=== PATIENT | male | born 2005 | race Caucasian/White ===

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

== ENCOUNTER 2024-07-24 09:37 | Outpatient (AMB) | payer MEDICAID, SELFPAY ==
--- NOTE | 2024-07-24 09:38 | A.OFFVISP_ITS ---
Vital Signs 07/24/24 09:46 Head Cirumference 173.5 Height 5 ft 8.31 in Height percentile 50 Weight 137 lb 4 oz Weight percentile 25 BMI 20.7 BMI percentile 25 Temp 98.2 F Temp Source Oral Pulse 73 Pulse Source Pulse Oximeter BP 116/78 Pulse Oximetry (%) 98 Pediatric Intake Visit Reasons: [facility] 19 year male Director And Professor Required: No Accompanied by: Mother Allergies acetaminophen [Tylenol] Allergy (Severe, Verified 07/24/24 09:47) Anaphylaxis Benadryl Allergy (Severe, Uncoded 07/24/24 09:47) Anaphylaxis shellfish Allergy (Unknown, Uncoded 07/24/24 09:47) anaphylaxis Medication List - Last Reconciled 07/24/24 by Prema Huff MD albuterol sulfate 90 mcg/actuation (Ventolin HFA) 2 puffs inhalation Q4-6H PRN aripiprazole 2.5 mg PO BEDTIME azelastine 1 spray intranasal BID budesonide-formoterol 160-4.5 mcg/actuation (Symbicort) 2 puffs inhalation BID cetirizine 10 mg PO DAILY PRN clonazepam 1 mg PO ONCE PRN diazepam (Valtoco) mg intranasal divalproex 500 mg PO BID epinephrine 0.3 mg (0.3 mL) IM ONCE PRN fexofenadine 180 mg PO DAILY guanfacine ER 4 mg PO DAILY ketotifen fumarate 0.025%(0.035%) (Alaway) 1 drp ophthalmic (eye) BID PRN sertraline 12.5 mg PO BEDTIME tiotropium bromide 2.5 mcg/actuation (Spiriva Respimat) 1 puff PO DAILY triamcinolone acetonide 2 sprays intranasal DAILY zonisamide 200 mg PO DAILY Dental Screening Dental Screen Date: 07/24/24 Did your child have a dental visit in the last 12 months for preventative care, such as check-ups/dental cleaning?: Yes Was there a time your child needed dental care in the last 12 months, but was not received?: No Was dental information given to patient?: Patient has dentist [facility] 18-21 Year Male Concerns: 1) asthma management. Asthma exacerbations include frequent early- morning shortness of breath and physical activity limitations. The use of a rescue inhaler is infrequent despite symptoms. he is using bid symbicort as prescribed. He struggles to walk up and down stairs. previous PFTs with c/o restrictive process vs poor cooperation. has now aged out so hasnt had further eval. 2) autism/ ID/ sensory difficulties -daily activities like showering and hygiene continue to be challenging. Adaptive clothing has helped a lot with dressing. he has had ongoing scalp issues d/t not washing his hair regularly and always wearing a hat 3) now legally blind. vision is significant issue for him. has a lot of fatigue which mom feels is related to vision. has been evaluated at [facility]. ) increasing irritability. sees psych - needs med adjustment - his dr was deployed so now has diff provider and doesnt want to see anyone else. irritability really impacts home dynamics Nutrition well-balanced, healthy diet with good variety/appropriate servings of fruits/vegetables/proteins/dairy. drinks a lot of milk. prefers junk but will eat fruit and vegetables. Exercise Sports and activities: Reports watches >2 hours of screen time daily Genitourinary Bowel movements: normal Urine output: normal Dental Dental care: Reports receives dental care Educational/Employment attends transitions 2 program at [facility] at age 21 - will transition to care home environment at that point. lives in 2 bedroom transition apartment in downstairs of house with sister Yoselyn. there is kitchen with keurig, frig, microwave and convection oven/toaster and living space. Sleep Sleep location: 4-7 years: own bed Safety Car safety: well child 16-17 years: seat belt Home Safety: Reports safe practices around pool and water, Has poison control number, Water heater temp <120, Working smoke detector in home, Working carbon monoxide detector in home and Fire Extinguisher in home [facility] Medical History (Updated 07/24/24 @ 10:42 by Prema Huff MD) Moderate persistent asthma Severe lead poisoning Incontinence Seizure disorder Eczema Anibal's paralysis ADHD Intellectual disability Chromosomal abnormality Autism Surgical History No pertinent past surgical history Family History (Updated 07/24/24 @ 11:29 by ROLF [place]) Brother ADHD Anxiety Asthma Rheumatoid arthritis Chromosomal abnormality Seizure Sister Seizure Anxiety Depression Chromosomal abnormality Mother Anxiety Depression Bipolar 1 disorder Borderline personality disorder Schizophrenia Substance use disorder Breast cancer Seizure Intellectual disability Social History Household Members: Adopted Family Household Members Other:: adopted with 2 bio sibs. Both parents involved: No (bio parents not involved) Housing: House Cognitive needs: No Hearing needs: No Vision needs: Yes CRAFFT Screening Tool PART A: In the PAST 12 MONTHS, did you: Drink any alcohol (more than few sips)? (Do not count sips of alcohol taken during family or jew events.): No Smoke any marijuana or hashish?: No Use anything else to get high? (includes illegal drugs, over the counter/prescription drugs, or things that you sniff/kimball?): No PART B: If answered YES to ANY above: Have you ever been in a CAR driven by someone (including yourself) who was high or had been using alcohol or drugs?: No CRAFFT Assessment Charge Crafft: CRAFFT 37866 PHQ-9 Over the last 2 weeks, how often have you been bothered by any of the following problems? 1. Little interest or pleasure in doing things: several days 2. Feeling down, depressed, or hopeless: nearly every day 3. Trouble falling or staying asleep, or sleeping too much: more than half the days 4. Feeling tired or having little energy: nearly every day 5. Poor appetite or overeating: several days 6. Feeling bad about yourself - or that you are a failure or have let yourself or your family down: more than half the days 7. Trouble concentrating on things, such as reading the newspaper or watching television: nearly every day 8. Moving or speaking so slowly that other people could have noticed. Or the opposite - being so fidgety or restless that you have been moving around a lot more than usual: nearly every day 9. Thoughts that you would be better off or of hurting yourself in some way: not at all Total score: 18 Depression Screening Interpretation: Positive Depression Screening Done: Yes 02373 - PHQ-9 Billing: Yes Source: Developed by Drs. Roman Bird, Staci Mejia, Lenny Holcomb and colleagues, with an educational abdirizak from [employer]. Review of Systems Const All systems reviewed & are unremarkable except as noted in HPI and below PE 13-21 years Constitutional General: alert and active HENMT Ears: Reports external ears normal, TMs normal bilaterally and EAC's normal Teeth: Reports dentition normal Throat: Reports posterior oropharynx normal Neck Appearance: Reports normal appearance, no masses and FROM Lymphatic: Reports no lymphadenopathy noted Resp Effort & Inspection: Reports normal respiratory effort Auscultation: Reports clear to auscultation bilaterally Cardio Rate: Reports regular rate Rhythm: Reports regular rhythm Heart sounds: Reports S1 normal, S2 normal (no murmur) and murmur (NO MURMUR) GI Inspection: Reports normal to inspection Palpation: Reports soft, non-tender, no hepatomegaly, no splenomegaly and no masses Auscultation: Reports normal bowel sounds Male Genitalia: Reports normal except where noted (no hernia. no testicular mass or tenderness) and testes palpable bilaterally Musc Thoracic/Lumbar Spine: Reports thoracic and lumbar spine normal to inspection Skin General: Reports no rashes or lesions noted Neuro General: Reports oriented Assessment & Plan Assessment & Plan (1) Encounter for well adult exam with abnormal findings: Code(s): Z00.01 - Encounter for general adult medical examination with abnormal findings Plan: Discussed age-appropriate AG including peer relationships/peer pressure, family relationships, abstinence/safe sex, healthy relationships/sexuality, internet safety, drug/alcohol/cigarette/vaping/marijuana avoidance, sleep, healthy diet, importance of daily physical activity, mood, stress management, conflict management, seatbelt use, dental health, future plans (2) Moderate persistent asthma: Code(s): J45.40 - Moderate persistent asthma, uncomplicated Category: Medical Plan: urgent referral to [facility] pulmonary. (3) Seizure disorder: Code(s): G40.909 - Epilepsy, unspecified, not intractable, without status epilepticus Category: Medical Plan: continue to f/u with [facility] (4) Sensory integration dysfunction: Code(s): F88 - Other disorders of psychological development Category: Medical Plan: discussed OT referral to help with managing self-care concerns. Plan During this visit, I focused on managing the patient's asthma, recommending the use of a rescue inhaler when experiencing shortness of breath and planning a pulmonology referral. Sensory processing difficulties were addressed with suggestions for SURFACING TECHNICIAN support and highlight adaptive clothing benefits. I also advised on regular scalp treatments for dermatitis and discussed the impact of frequent hat use. We emphasized the need to secure blindness certification to assist with resources and addressed social service transitions. Psychiatric concerns, given recent irritability, required reviewing medication management pending a new provider due to service assignments. Lastly, we discussed primary care transition to adult provider. Orders: Orders OT Evaluation and Treatment 07/24/24 F79 - Unspecified intellectual disabilities, F84.0 - Autistic disorder, F88 - Other disorders of psychological development, G40.909 - Epilepsy, unspecified, not intractable, without status epilepticus Referrals Pulmonology Referral J45.40 - Moderate persistent asthma, uncomplicated Coding Level of Care Code Est Pt Prev Care 18-39y(43253) Diagnoses Encounter for well adult exam with abnormal findings Z00.01 Moderate persistent asthma J45.40 Seizure disorder G40.909 Sensory integration dysfunction F88 Additional Codes Asthma Control Questionnaire - ACT Interpretation: Positive ([id number]) CRAFFT Assessment Charge - Crafft: CRAFFT 49383 ([id number]) JOSE-7 Assessment Billing - JOSE-7 Assessment Tool: JOSE-7 Assessment 29664 ([id number]) PHQ-9 - 06467 - PHQ-9 Billing: Yes ([id number]) Thrive Questionnaire Date Thrive assessed: 07/24/24 I am a: Patient What is your living situation today?: I have a steady place to live Within the past 12 months, did the food you bought not last and you didn't have the money to get more?: Never true Within the past 12 months, did you worry whether your food would run out before you got money to buy more?: Never true Do you have trouble paying for medicines?: No Do you have trouble getting transportation to medical appointments?: No Do you have trouble paying your heating and electricity bill?: No Do you have trouble taking care of your child, family member or friend?: I choose not to answer this question Do you have trouble with day-to-day activities such as bathing, preparing meals, shopping, managing finances, etc.?: Yes Are you currently unemployed and looking for a job?: No Are you interested in more education?: No Please select the resources that you would like help with: None THRIVE Score: 0 JOSE-7 AMB Questionnaire JOSE-7 Date JOSE - 7 assessed: 07/24/24 Feeling nervous, anxious, or on edge: 2 = More than half the days Not being able to stop or control worryin = More than half the days Worrying too much about different things: 1 = Several days Trouble relaxin = More than half the days Being so restless that it is hard to sit still: 3 = Nearly every day Becoming easily annoyed or irritable: 3 = Nearly every day Feeling afraid as if something awful might happen: 0 = Not at all Total JOSE-7 score (0-4 normal; 5-9 mild; 10-14 moderate; 15-21 severe): 13 Source: Developed by Drs. Roman Bird, Staci Mejia, Lenny Holcomb and colleagues, with an educational abdirizak from [employer]. JOSE-7 Assessment Billing JOSE-7 Assessment Tool: JOSE-7 Assessment 87577 ACT Questionnaire In the past 4 weeks, how much of the time did your asthma keep you from getting as much done at work, school or at home?: Some of the time During the past 4 weeks, how often have you had shortness of breath?: Once a day During the past 4 weeks, how often did your asthma symptoms wake you up at night or earlier than usual in the morning?: 4 or more nights a week During the past 4 weeks, how often have you had to use your rescue inhaler or nebulizer medication?: Once a week or less How would you rate your asthma control during the past 4 weeks?: Poorly controlled ACT Interpretation: Positive Score: 12
[2024-07-24 09:46] VITALS: BP 116/78; PULSE 73; TEMP 36.8; O2SAT 98; BMI 20.7
== END 2024-07-24 10:45 | disposition home or self-care (01) ==
LOC: HO.HMCP 09:38
PROVIDERS: PCP Pediatrics; Visit Provider Pediatrics
DX: Z00.01 Encounter for general adult medical examination with abnormal findings (principal); J45.40 Moderate persistent asthma, uncomplicated; G40.909 Epilepsy, unspecified, not intractable, without status epilepticus; F88 Other disorders of psychological development

== ENCOUNTER → 2024-07-24 09:37 | Outpatient (BNVA) | payer MEDICAID, SELFPAY | PROVIDERS: PCP Pediatrics; Visit Provider Pediatrics | DX: Z00.01 Encounter for general adult medical examination with abnormal findings (principal); J45.40 Moderate persistent asthma, uncomplicated; G40.909 Epilepsy, unspecified, not intractable, without status epilepticus; F88 Other disorders of psychological development | CPT/HCPCS: 96127; 96160; 99395 ==

== ENCOUNTER 2024-08-25 14:28 | Outpatient (AMB) | payer MEDICAID, SELFPAY ==
--- NOTE | 2024-08-25 14:32 | A.OFFVIS_ITS ---
Vital Signs 08/25/24 14:33 Height 5 ft 8.31 in Weight 138 lb 14.259 oz BMI 20.9 BP 108/72 Blood Pressure Location Rt brachial Position Sitting Pulse 91 Pulse Source Doppler Pulse Oximetry (%) 98 Oxygen Delivery Method Room Air Intake Visit Reasons: Asthma Allergies acetaminophen [Tylenol] Allergy (Severe, Verified 07/24/24 09:47) Anaphylaxis Benadryl Allergy (Severe, Uncoded 07/24/24 09:47) Anaphylaxis shellfish Allergy (Unknown, Uncoded 07/24/24 09:47) anaphylaxis HPI HPI Asthma: Details: 19-year-old gentleman, nonsmoker, with underlying history of lifelong asthma, previously seen at [facility], now presents to counts include 234 beds at the [facility] care. Patient stated has been using Symbicort 80, Spiriva, and albuterol MDI with suboptimal control of his symptoms. He is also complain of environmental allergies for which he is using Zyrtec and azelastine. He denies recent exacerbations. Patient is unsure about his family history. He denies exposure to industrial dusts. Patient does have dogs as pets. ON LICENSE OF [facility] Medical History (Updated 08/25/24 @ 14:51 by Charles Good MD) Moderate persistent asthma Severe lead poisoning Incontinence Seizure disorder Eczema Anibal's paralysis ADHD Intellectual disability Chromosomal abnormality Autism Surgical History No pertinent past surgical history Family History (Updated 07/24/24 @ 11:29 by ROLF [place]) Brother ADHD Anxiety Asthma Rheumatoid arthritis Chromosomal abnormality Seizure Sister Seizure Anxiety Depression Chromosomal abnormality Mother Anxiety Depression Bipolar 1 disorder Borderline personality disorder Schizophrenia Substance use disorder Breast cancer Seizure Intellectual disability Social History Household Members: Adopted Family Household Members Other:: adopted with 2 bio sibs. Housing: House Cognitive needs: No Hearing needs: No Vision needs: Yes Review of Systems Const Denies daytime sleepiness, Denies excessive sweating, Denies fatigue, Denies fever(s), Denies lethargy, Denies malaise, Denies night sweats, Denies snoring and Denies weight loss Eyes Denies blurry vision and Denies itchy eyes ENT Denies nasal congestion, Denies post nasal drip, Denies sinus pain, Denies sinus pressure and Denies other ( Thrush) Card Denies chest pain, Denies pedal edema, Denies dyspnea, Denies orthopnea and Denies paroxysmal nocturnal dyspnea Resp Denies cough, Denies hemoptysis, Denies excessive phlegm production, Denies dyspnea, Denies snoring and Denies wheezing GI Denies abdominal pain and Denies heartburn Musc Denies myalgias, Denies arthralgias and Denies joint swelling Skin/Breast Denies rash Neuro Denies memory loss and Denies seizure-like activity Psych Denies abnormal sleep pattern, Denies anxiety and Denies memory loss Endo Denies excessive sweating, Denies fatigue and Denies heat intolerance Veto/Lymph Denies easy bruising Aller/Immun Denies itchy eyes, Denies seasonal rhinorrhea and Denies wheezing Physical Exam Vital Signs: Last Vital Signs Pulse 91 08/25/24 14:33 BP 108/72 08/25/24 14:33 Pulse Ox 98 08/25/24 14:33 Oxygen Delivery Method Room Air 08/25/24 14:33 BMI result Body Mass Index 20.9 Const General: no acute distress and alert Nutritional Appearance: not obese Orientation/consciousness: Other orientation findings ( oriented) HEENT Head: Yes atraumatic Eyes General: appearance normal, both eyes and all related structures Sclerae: sclerae normal EOM: EOMs intact bilaterally Neck Neck: Yes supple Lymphatic: no lymphadenopathy noted Resp Effort & Inspection: normal respiratory effort and no use of accessory muscles Auscultation: clear to auscultation bilaterally Cardio Rate: regular rate Rhythm: regular rhythm Heart sounds: no gallops, no murmurs and no rubs Skin General skin exam: other ( warm) Extrem General: No clubbing, No cyanosis and No edema Assessment & Plan Assessment & Plan (1) Moderate persistent asthma: Code(s): J45.40 - Moderate persistent asthma, uncomplicated Category: Medical Plan: Suboptimally controlled on low-dose Symbicort, increase Symbicort to 160. Continuous Spiriva and albuterol MDI. Will obtain full PFT. (2) Environmental allergies: Code(s): Z91.09 - Other allergy status, other than to drugs and biological substances Category: Medical Plan: Will obtain IgE level, CBC with differential, and RAST panel for further evaluation. Orders: Orders Complete Blood Count Auto Diff Today J45.40 - Moderate persistent asthma, uncomplicated Resp Allergy Profile Region I Today J45.40 - Moderate persistent asthma, uncomplicated PFT pulmonary function test Today J45.40 - Moderate persistent asthma, uncomplicated Medications: New budesonide-formoterol 160-4.5 mcg/actuation (Symbicort) 2 puffs inhalation BID 10.2 grams 6RF J45.40 - Moderate persistent asthma, uncomplicated Changed From tiotropium bromide 2.5 mcg/actuation (Spiriva Respimat) 1 puff PO DAILY J45.40 - Moderate persistent asthma, uncomplicated To tiotropium bromide 2.5 mcg/actuation (Spiriva Respimat) 2 puffs PO DAILY 4 grams 6RF J45.40 - Moderate persistent asthma, uncomplicated Refilled albuterol sulfate 90 mcg/actuation (Ventolin HFA) 2 puffs inhalation Q4-6H PRN 1 ea 6RF shortness of breath or wheezing J45.40 - Moderate persistent asthma, uncomplicated Coding Level of Care Code New Pt Level 4 (97300) Diagnoses Moderate persistent asthma J45.40 Environmental allergies Z91.09
[2024-08-25 14:33] VITALS: BP 108/72; PULSE 91; O2SAT 98; BMI 20.9
--- OUTSIDE RECORDS SUMMARY | 2024-08-25 16:44 | XMS_ITS | Clinical Summary ---
Author Organization [facility] 's Address [address] [place] [id number] Care Team Providers Care Immersion Metalcleaner Name Role Phone Prema Huff MD Primary Care Provider Source Comments Please note that some or all of the patient's information could have additional privacy protections. State laws allow health care providers to render certain types of treatment to minors without parental consent. Please do not assume that this information can be shared solely by obtaining just the consent of the patient's parent/guardian. Please determine if all or part of the patient's care was rendered without parent/guardian involvement. And, if so, obtain the minor's consent prior to disclosure.[facility] Allergies Active Allergy Reactions Criticality Noted Date Comments Shellfish 10/27/2021 Medications guanFACINE (INTUNIV) 3 mg extended release tablet Take 4 mg by mouth 1 Active cholecalciferol (VITAMIN D3) 25 mcg (1,000 unit) capsule Take 1,000 Units by mouth daily Active clonazePAM (KLONOPIN) 1 MG tablet Take by mouth Active cyanocobalamin 500 MCG tablet Take by mouth A ctive diazePAM (VALIUM) 10 MG tablet Take by mouth Act regina divalproex (DEPAKOTE SPRINKLE) 125 mg sprinkled capsule Take by mouth Active levETIRAcetam (KEPPRA) 500 MG tablet Take by mouth Active melatonin 3 mg Tablet, Rapid Dissolve Take by mouth Active multivitamin capsule Take 1 capsule by mouth daily Active pyridoxine, vitamin B6, (B-6) 100 MG tablet Take 100 mg by mouth daily Active triamcinolone (NASACORT) 55 mcg nasal inhaler by Nasal route Active zonisamide (ZONEGRAN) 50 MG capsule Take 50 mg by mouth 4 (four) times daily as needed Active ARIPiprazole (ABILIFY) 2 MG tablet Take 2 mg by mouth at bedtime 3 Active diazePAM (VALTOCO) 15 mg/2 spray (7.5/0.1mL x 2) [place], Non-Aerosol 15 mg by Nasal route daily as needed Active tiotropium bromide (SPIRIVA RESPIMAT) 2.5 mcg/actuation MistIndications:M ild persistent asthma without complication Inhale 5 mcg into the lungs daily 4 g 5 3 Active albuterol (PROVENTIL HFA;VENTOLIN HFA) 90 mcg/actuation inhalerIndication s:Mild persistent asthma without complication Inhale 2 puffs into the lungs every 4 (four) hours as needed for Wheezing 1 each 5 3 Active fexofenadine (SHAR) 30 mg/5 mL suspensionIndicat ions:Mild persistent asthma without complication Take 5 mLs (30 mg) by mouth daily 237 mL 5 3 Active azelastine (ASTELIN) 137 mcg (0.1 %) nasal sprayIndications: Mild persistent asthma without complication 1 squirt in each nostril 2 times daily 30 mL 5 3 Active SYMBICORT 80-4.5 mcg/actuation inhalerIndication s:Mild persistent asthma without complication INHALE 2 PUFFS INTO THE LUNGS TWICE A DAY 10.2 each 3 3 Active Active Problems Problem Noted Date Diagnosed Date Mild persistent asthma without complication 08/27 Seasonal allergic rhinitis due to pollen 023 Food allergy 09/13/2022 Nonintractable epilepsy with out status epilepticus, unspecified epilepsy type 09/13/2022 Attention deficit hyperactiv ity disorder (ADHD), combined type 09/13/2022 Chromosomal abnormality 09/13/2022 Family History Medical History Relation Name Comments ADD / ADHD Brother Anxiety disorder Brother Seizures Brother Anxiety disorder Sister Depression Sister Seizures Sister Relation Name Status Comments Brother Father Adopted Mother Adopted Other Sister Social History Tobacco Use Types Packs/Day Years Used Date Smoking Tobacco: Never Smokeless Tobacco: Never Tobacco Cessation:Counseling Given: Not Answered Sex and Gender Information Value Date Recorded Sex Assigned at Not on file Legal Sex Male 12:47 PM EDT Gender Identity Not on file Sexual Orientation Not on file Last Filed Vital Signs Vital Sign Reading Time Taken Comments Blood Pressure 112/73 09/13/2022 9:50 AM EDT Pulse 84 09/13/2022 9:50 AM EDT Temperature - - Respiratory Rate 18 09/13/2022 9:50 AM EDT Oxygen Saturation 100% 09/13/2022 9:50 AM EDT Inhaled Oxygen Concentration - - Weight 58.3 kg (128 lb 8.5 oz) 09/13/2022 9:50 A M EDT Height 170.3 cm (5' 7.05 ) 09/13/2022 9:50 AM ED T Body Mass Index 20.1 09/13/2022 9:50 AM EDT Plan of Treatment Health Maintenance Due Date Last Done Comments DTaP/TDAP/TD VACCINES (1 - Tdap) 2011 ADOLESCENT HIV SCREENING 2017 COVID-19 Vaccine (2023-2 5 season) 2023 INFLUENZA (#1) 2023 NIRSEVIMAB VACCINES UNDER 8 MONTHS Aged Out No longer eligible based on patient's age to complete this topic Insurance [facility] MEDICAID [facility] MED[facility] Care Teams Immersion Metalcleaner Relationship Specialty Start Date End Date Prema Huff MD [address] [place] [address] [place] [address] PCP - General General Pediatrics 10/25/21
--- OUTSIDE RECORDS SUMMARY | 2024-08-25 16:44 | XMS_ITS | Clinical Summary ---
Author Organization [facility] Address [address] [place] [id number] Phone Care Team Providers Care Research Hydraulic Engineer Name Role Phone Lindy Avila MD Primary Care Provider [phone] Immunizations Immunization Administration Dates Next Due DTaP 5 10/15/2005, 6,2004,08/15,2004 Hep A, ped/adol 05/23/2015,12/30/2006 Hep B, ped/adol 2004, 5,2004,04/08 Hib (PRP-T) 07/17/2005, 5,2004,06/26 IPV 03/09/2015,2004,2004 Influenza, injectable, quadr ivalent, preservative free 03/04/2015 Influenza, injectable, triva lent, preservative free 04/30/2006,05/10/2005 MMR 04/09/2005 Meningococcal Conj (Menactra) [id number] 05/23/2015 Pneumococcal Conjugate 01/15/2005,2004,2004,06/23 Tdap 05/23/2015 Varicella 04/09/2005 Social History Tobacco Use Types Packs/Day Years Used Date Smoking Tobacco: Never Assessed Sex and Gender Information Value Date Recorded Sex Assigned at Not on file Legal Sex Male 6:36 PM EDT Gender Identity Not on file Sexual Orientation Not on file Last Filed Vital Signs Vital Sign Reading Time Taken Comments Blood Pressure - - Pulse 103 07/08/2015 10:46 AM EST Temperature 37.2 ??C (98.9 ??F) 07/08/2015 10:[address] Respiratory Rate - - Oxygen Saturation 98% 07/08/2015 10:46 AM EST Inhaled Oxygen Concentration - - Weight 31.8 kg (70 lb 3.2 oz) 07/08/2015 10:46 A M EST Height 139.7 cm (4' 7 ) 07/08/2015 10:46 AM EST Body Mass Index 16.32 07/08/2015 10:46 AM EST Plan of Treatment Health Maintenance Due Date Last Done Comments Varicella Vaccines (2 of 2 - 2-dose childhood series) 2008 04/09/2005 HPV Vaccines (1 - Male 3-dose series) 2019 Men B Vaccine (1 of 2 - Standard) 2020 Influenza Vaccines (#1) 2023 03/04/20 15, 04/30/2006, 05/10/2005 COVID-19 Vaccine ( - season) 2023 DTaP,Tdap,and Td Vaccines (6 - Td or Tdap) 05/23/2025 05/23/2015, 10/15/2005, 07/17/2005, Additional history exists Hepatitis B Vaccines Completed 2004, 2004, 2004, Additional history exists Pneumococcal Vaccine Aged Out 01/15/2005, 2004, 2004, Additional history exists No longer eligible based on patient's age to complete this topic MMR Vaccines Completed 04/09/2005 HIB Vaccines Completed 07/17/2005, 09/27, 2004, Additional history exists IPV Vaccines Completed 03/09/2015, 09/28, 2004 Hepatitis A Vaccines Completed 05/23/2015, 12/31/19 07 Meningococcal Vaccine Aged Out 05/23/2015 No rajat felix eligible based on patient's age to complete this topic Care Teams Research Hydraulic Engineer Relationship Specialty Start Date End Date Lindy Avila MD [facility] [place] [address] PCP - General 09/04/17
--- OUTSIDE RECORDS SUMMARY | 2024-08-25 16:44 | XMS_ITS | Encounter Summary ---
Author Organization [facility] Address [address] [place] [phone] Phone Care Team Providers Care Network Intelligence Analyst Name Role Phone Lindy Avila MD Primary Care Provider [phone] Encounter Details Date Type Department Care Team (Late st Contact Info) Description 03/04/2015 Conversion Encounter [facility] [address] [place] [id number] Social History Tobacco Use Types Packs/Day Years Used Date Smoking Tobacco: Never Assessed Sex and Gender Information Value Date Recorded Sex Assigned at Not on file Legal Sex Male 6:36 PM EDT Gender Identity Not on file Sexual Orientation Not on file documented as of this encounter Plan of Treatment Not on file documented as of this encounter Visit Diagnoses Not on filedocumented in this encounter Care Teams Network Intelligence Analyst Relationship Specialty Start Date End Date Lindy Avila MD [address] [place] [address] PCP - General 09/04/17 documented as of this encounter
== END 2024-08-25 15:00 | disposition home or self-care (01) ==
LOC: HO.HPS 14:29
PROVIDERS: PCP Pediatrics; Referring Provider Pediatrics; Visit Provider Internal Medicine Pulmonary Disease
DX: J45.40 Moderate persistent asthma, uncomplicated (principal); Z91.09 Other allergy status, other than to drugs and biological substances
CPT/HCPCS: 99204

== ENCOUNTER 2024-08-25 15:03 | Outpatient (REF) | payer MEDICAID, SELFPAY ==
--- NOTE | 2024-08-25 15:09 | PFT_ITS ---
Flows: FEV1: 79 % of predicted at 3.47 L FVC: 68 % of predicted at 3.49 L FEV1/FVC: 100 % Bronchodilator response: Absent Volumes: Total lung capacity: 91 % of predicted at 5.73 L Residual volume: 162 % of predicted at 2.17 L Slow vital capacity: 73 % of predicted at 3.56 L Expiratory reserve volume: 29 % of predicted at 0.47 L Diffusion capacity: Normal Impression: No obstructive or restrictive ventilatory defect. No bronchodilator response. Increased residual volume suggests air trapping. MTDD
[2024-08-25 15:52] LABS: MANUAL DIFF FLAG NO
[2024-08-25 15:56] VITALS: PULSE 82; O2SAT 98
[2024-08-25 16:17] LABS: Basophils Absolute Auto 0.1 X10*3/uL (0.0-0.2); Basophils Percent Auto 0.9 % (0-2); Eosinophils Absolute Auto 0.1 X10*3/uL (0.0-0.4); Hematocrit 43.9 % (42.0-52.0); Imm Gran Abs Auto 0.05 X10*3/uL (0.00-0.03); Imm Gran Pct Auto 0.6 % (0.0-0.4); Lymphocytes Absolute Auto 3.7 X10*3/uL (1.2-4.9); Lymphocytes Percent Auto 41.9 % (20-40); Mean Corpuscular HGB Conc 34.2 g/dl (31.0-36.0); Mean Corpuscular Hemoglobin 30.2 pg (27.0-33.0); Mean Corpuscular Volume 88.5 fL (80.0-98.0); Mean Platelet Volume 10.4 fL (9.4-12.4); Monocytes Absolute Auto 0.6 X10*3/uL (0.1-1.2); Monocytes Percent Auto 6.5 % (2-11); Neutrophils Absolute Auto 4.4 x10*3/uL (2.0-8.3); Neutrophils Percent Auto 49.1 % (45-73); Platelet Count 274 X10*3/uL (160-400); Red Blood Count 4.96 X10*6/uL (4.60-5.80); Red Cell Distribution Width 12.3 % (11.0-16.0); White Blood Count 8.9 X10*3/uL (4.8-10.8)
[2024-09-04 12:29] LABS: Class Alternaria alternata 0; Class Aspergillus fumigatus 0; Class Bermuda Grass 0; Class Birch 0; Class Cat Dander 0; Class Cladosporium herbarum 0; Class Cockroach 0; Class Common Ragweed 0; Class Cottonwood 0; Class Derm. pterony 0; Class Dermatophagoides farinae 0; Class Dog Dander 0; Class Elm 0; Class Maple Box Elder 0; Class Mountain Cedar 0; Class Mouse Urine Protein 0; Class Mugwort 0; Class Oak 0; Class Penicillium crysogenum 0; Class Rough Pigweed 0; Class Sheep Sorrel 0; Class Sycamore 0; Class Timothy Grass 0; Class Walnut Tree 0; Class White Ash 0; Class White Mulberry 0; D001 IgE D pteronyssinus <0.10 kU/L; D002 - IgE D farinae <0.10 kU/L; E001 - IgE Cat Dander <0.10 kU/L; E005 - IgE Dog Dander <0.10 kU/L; E072-IgE Mouse Urine <0.10 kU/L; G002 IgE Bermuda Grass <0.10 kU/L; G006 - IgE Timothy Grass <0.10 kU/L; I006-IgE Cockroach, German <0.10 kU/L; Immunoglobulin E <2 kU/L (<OR=114); M001 IgE Penicillium chrysogen <0.10 kU/L; M002 - IgE Cladosporium herbar <0.10 kU/L; M003 - IgE Aspergillus fumigat <0.10 kU/L; M006 - IgE Alternaria alternat <0.10 kU/L; T001 IgE Maple/Box Elder <0.10 kU/L; T003 IgE Common Silver Birch <0.10 kU/L; T006 - IgE Cedar, Mountain <0.10 kU/L; T007 - IgE Oak, White <0.10 kU/L; T008 IgE Elm, American <0.10 kU/L; T010 - IgE Walnut <0.10 kU/L; T011 - IgE Maple Leaf Sycamore <0.10 kU/L; T014 - IgE Cottonwood <0.10 kU/L; T015 - IgE Ash, White <0.10 kU/L; T070 - IgE White Mulberry <0.10 kU/L; W001 - IgE Ragweed, Short <0.10 kU/L; W006 - IgE Mugwort <0.10 kU/L; W014 IgE Pigweed, Common <0.10 kU/L; W018 IgE Sheep Sorrel <0.10 kU/L
== END 2024-08-25 15:04 | disposition home or self-care (01) ==
LOC: HO.RESP 15:03
PROVIDERS: PCP Pediatrics; Visit Provider Internal Medicine Pulmonary Disease
DX: J45.40 Moderate persistent asthma, uncomplicated (principal); Z91.09 Other allergy status, other than to drugs and biological substances
CPT/HCPCS: 36415; 82785; 85025; 86003; 94010; 94640; 94727; 94729; 99202